=== PATIENT | female | born 1985 | race Caucasian/White ===

== ENCOUNTER 2016-12-14 13:47 | Emergency (ER) | payer OTHER ==
[~2016-12-14] VITALS: Ht 165.1 cm; Wt 169.2 kg
[2016-12-14 17:04] VITALS: BP 149/81
== END 2016-12-14 17:04 | disposition home or self-care (01) ==
LOC: ED 13:47
DX: G89.29 Other chronic pain (principal); M54.5 Low back pain; E66.01 Morbid (severe) obesity due to excess calories; J45.909 Unspecified asthma, uncomplicated
CPT/HCPCS: J1170; J1885; Q0162

== ENCOUNTER 2017-03-01 15:22 | Emergency (ER) | payer OTHER ==
[~2017-03-01] VITALS: Ht 165.1 cm; Wt 170.6 kg
[2017-03-01 17:40] VITALS: BP 128/63
== END 2017-03-01 17:40 | disposition home or self-care (01) ==
LOC: ED 15:22
DX: L02.212 Cutaneous abscess of back [any part, except buttock and flank] (principal); J45.909 Unspecified asthma, uncomplicated; Z79.899 Other long term (current) drug therapy
CPT/HCPCS: 90715; J2001

== ENCOUNTER 2018-06-08 14:43 | Emergency (ER) | payer MEDICAID ==
[~2018-06-08] VITALS: Ht 165.1 cm; Wt 124.3 kg
[2018-06-08 15:06] VITALS: BP 108/50; Ht 165.1 cm; Wt 124.3 kg
== END 2018-06-08 15:47 | disposition home or self-care (01) ==
LOC: ED 14:43
DX: J20.8 Acute bronchitis due to other specified organisms (principal); F17.210 Nicotine dependence, cigarettes, uncomplicated; J45.909 Unspecified asthma, uncomplicated; G89.29 Other chronic pain; Z71.6 Tobacco abuse counseling
CPT/HCPCS: 99406; Q0092

== ENCOUNTER 2018-10-09 20:15 | Emergency (ER) | payer OTHER ==
[~2018-10-09] VITALS: Ht 165.1 cm; Wt 116.6 kg
[2018-10-09 20:37] VITALS: Ht 165.1 cm; Wt 116.6 kg
[2018-10-09 21:48] VITALS: BP 132/76
== END 2018-10-09 21:48 | disposition home or self-care (01) ==
LOC: ED 20:15
DX: S92.212A Displaced fracture of cuboid bone of left foot, initial encounter for closed fracture (principal); J45.909 Unspecified asthma, uncomplicated; G89.29 Other chronic pain; M54.9 Dorsalgia, unspecified; W01.0XXA Fall on same level from slipping, tripping and stumbling without subsequent striking against object, initial encounter; Y93.89 Activity, other specified; Y92.89 Other specified places as the place of occurrence of the external cause; Y99.8 Other external cause status

== ENCOUNTER 2019-03-15 09:49 | Emergency (ER) | payer OTHER ==
[~2019-03-15] VITALS: Ht 165.1 cm; Wt 112.0 kg
[2019-03-15 09:55] VITALS: Ht 165.1 cm; Wt 112.0 kg
[2019-03-15 13:01] VITALS: BP 120/63
== END 2019-03-15 13:01 | disposition home or self-care (01) ==
LOC: ED 09:49
DX: S46.912A Strain of unspecified muscle, fascia and tendon at shoulder and upper arm level, left arm, initial encounter (principal); S39.012A Strain of muscle, fascia and tendon of lower back, initial encounter; J45.909 Unspecified asthma, uncomplicated; G89.29 Other chronic pain; F17.210 Nicotine dependence, cigarettes, uncomplicated; Z98.84 Bariatric surgery status; V43.52XA Car driver injured in collision with other type car in traffic accident, initial encounter; Y93.I9 Activity, other involving external motion; Y92.413 State road as the place of occurrence of the external cause; Y99.8 Other external cause status
CPT/HCPCS: 99406; Q0092

== ENCOUNTER 2019-03-22 16:03 | Emergency (ER) | payer OTHER ==
[~2019-03-22] VITALS: Ht 165.1 cm; Wt 111.1 kg
[2019-03-22 16:19] VITALS: BP 128/56; Ht 165.1 cm; Wt 111.1 kg
== END 2019-03-22 21:02 | disposition left against medical advice (07) ==
LOC: ED 16:03
DX: Z53.21 Procedure and treatment not carried out due to patient leaving prior to being seen by health care provider (principal)

== ENCOUNTER 2019-08-28 09:44 | Emergency (ER) | payer OTHER ==
[~2019-08-28] VITALS: Ht 165.1 cm; Wt 111.1 kg
[2019-08-28 10:04] VITALS: Ht 165.1 cm; Wt 111.1 kg
[2019-08-28 11:50] VITALS: BP 108/50
== END 2019-08-28 11:50 | disposition home or self-care (01) ==
LOC: ED 09:44
DX: B34.9 Viral infection, unspecified (principal); J45.901 Unspecified asthma with (acute) exacerbation; F17.210 Nicotine dependence, cigarettes, uncomplicated; G89.29 Other chronic pain; M54.9 Dorsalgia, unspecified; Z98.890 Other specified postprocedural states
CPT/HCPCS: 99406; J7512

== ENCOUNTER 2020-02-03 11:55 | Emergency (ER) | payer OTHER, SELFPAY ==
[~2020-02-03] VITALS: Ht 165.1 cm; Wt 113.4 kg
[2020-02-03 12:15] VITALS: Ht 165.1 cm; Wt 113.4 kg
[2020-02-03 13:51] VITALS: BP 117/49
== END 2020-02-03 13:51 | disposition home or self-care (01) ==
LOC: ED 11:55
DX: J06.9 Acute upper respiratory infection, unspecified (principal); J45.909 Unspecified asthma, uncomplicated; G89.29 Other chronic pain; M54.9 Dorsalgia, unspecified; Z20.828 Contact with and (suspected) exposure to other viral communicable diseases; Z98.890 Other specified postprocedural states
CPT/HCPCS: Q0092; U0003-CS

== ENCOUNTER 2020-10-16 09:24 | Inpatient (IN) | payer OTHER, SELFPAY ==
[~2020-10-16] VITALS: Ht 165.1 cm; Wt 136.5 kg
[2020-10-16 10:25] LABS: PLATELET COUNT 236 x10^3mcL (179-408); RED CELL DISTRIBUTION WIDTH 12.8 % (12.3-17.7)
[2020-10-16 10:45] LABS: ALBUMIN 2.8 g/dL (3.4-5.0); ALKALINE PHOSPHATASE 50 U/L (46-116); ALT/SGPT 18 U/L (14-59); AST/SGOT 13 U/L (15-37); BILIRUBIN TOTAL 0.5 mg/dL (0.20-1.00); CALCIUM 8.7 mg/dL (8.5-10.1); CARBON DIOXIDE 28.7 mmol/L (21-32); CHLORIDE SERUM 100 mmol/L (98-107); CREATININE SERUM 0.6 mg/dL (0.6-1.0); GFR1 > 60 mL/min; GLUCOSE SERUM 95 mg/dL (74-106); LIPASE 59 IU/L (73-393); POTASSIUM SERUM 3.5 mmol/L (3.5-5.1); SODIUM SERUM 136 mmol/L (136-145); TOTAL PROTEIN, SERUM 6.8 g/dL (6.4-8.2)
[2020-10-16 10:59] LABS: microscopic required? YES; urine erythrocyte TRACE (NEGATIVE)
[2020-10-16 11:20] LABS: BAND NEUTROPHIL 2 % (0-10); MONOCYTE 4 % (0-7); SEGMENTED NEUTROPHILS 90 % (37-75)
[2020-10-16 11:21] LABS: rbc morphology (normal/abnorm) NORMAL (NORMAL)
[2020-10-16] MEDS ORDERED: CYMBALTA20 M1 PO (13:39)
[2020-10-16] MEDS ORDERED: ACID REDUCER20 MG PO (13:39)
[2020-10-16] MEDS ORDERED: VITAMIN D310 MC1 PO (13:40)
[2020-10-16] MEDS ORDERED: VITAMIN B122500 MC1 PO (13:41)
[2020-10-16 16:33] VITALS: BP 129/70
[2020-10-16 16:41] VITALS: Ht 165.1 cm; Wt 136.5 kg
[2020-10-16 19:54] VITALS: BP 103/62
[2020-10-17 05:43] VITALS: BP 123/62
[2020-10-17 06:52] LABS: BASOPHIL % 0.3 % (0.2-1.3); PLATELET COUNT 220 x10^3mcL (179-408); RED CELL DISTRIBUTION WIDTH 13.2 % (12.3-17.7)
[2020-10-17 07:21] LABS: CALCIUM 8.1 mg/dL (8.5-10.1); CARBON DIOXIDE 24.6 mmol/L (21-32); CHLORIDE SERUM 103 mmol/L (98-107); CREATININE SERUM 0.6 mg/dL (0.6-1.0); GFR1 > 60 mL/min; GLUCOSE SERUM 82 mg/dL (74-106); HDL CHOLESTEROL 46 mg/dL (40-60); MAGNESIUM 1.8 mg/dL (1.8-2.4); SODIUM SERUM 136 mmol/L (136-145); TRIGLYCERIDES 79 mg/dL (<150)
[2020-10-17 07:30] LABS: CHOLESTEROL 126 mg/dL (<200); CHOLESTEROL/HDL RATIO 2.7
[2020-10-17 07:51] LABS: POTASSIUM SERUM 2.9 mmol/L (3.5-5.1)
[2020-10-17 09:15] VITALS: BP 122/57
[2020-10-17] MEDS ORDERED: CIPRO500 MG PO (12:04)
[2020-10-17] MEDS ORDERED: FLA500 PO (12:05)
[2020-10-17] MEDS ORDERED: DIFLUCAN200 MG PO (12:07)
== END 2020-10-17 12:52 | disposition home or self-care (01) | DRG 249 ==
LOC: ED 09:24 → MU 13:06 → DU 13:06
PROVIDERS: Emergency Medicine; ADMIT Hospitalist; ATTEND Hospitalist
DX: K52.9 Noninfective gastroenteritis and colitis, unspecified (principal); Z68.42 Body mass index [BMI] 45.0-49.9, adult; K57.92 Diverticulitis of intestine, part unspecified, without perforation or abscess without bleeding; Z20.822 Contact with and (suspected) exposure to COVID-19; E66.9 Obesity, unspecified; G89.29 Other chronic pain; M54.9 Dorsalgia, unspecified; D25.9 Leiomyoma of uterus, unspecified; J45.909 Unspecified asthma, uncomplicated; M54.32 Sciatica, left side; Z98.84 Bariatric surgery status; Z79.899 Other long term (current) drug therapy; Z79.891 Long term (current) use of opiate analgesic; Z79.01 Long term (current) use of anticoagulants
CPT/HCPCS: 87804; G0378; J0744; J1650; J1885; J2405; J2543; J3480; J3490; J7030; U0003